=== PATIENT | female | born 1995 | race Caucasian/White ===

== ENCOUNTER → 2017-05-30 | Outpatient (CLI) | payer OTHER ==
--- NOTE | 2017-05-30 11:40 | US ---
EXAMINATION TYPE: US abdomen complete DATE OF EXAM: 05/30/2017 COMPARISON: None CLINICAL HISTORY: 22 year-old female R19.0 Right flank mass. Patient stated feels small palpable at r ight abdomen; Ht 5'2"; Wt approximately 220lbs. TECHNIQUE: Multiple sonographic images of the abdomen are obtained. Additional targeted scanning david g the right flank at the patient directed site of palpable abnormality. FINDINGS: Liver Length: 16.7 cm Gallbladder Wall: 0.2 cm CBD: 3.5 mm Spleen: 9.0 cm Right Kidney: 10.8 x 5.4 x 3.6 cm Left Kidney: 10.4 x 5.3 x 5.7 cm Pancreas: Suboptimal visualization of the pancreatic head and tail secondary to shadowing from bowel gas. Liver: Slightly heterogeneous echotexture may be on a technical basis. Gallbladder: wnl Evidence for sonographic Arango's sign: No CBD: wnl Spleen: wnl Right Kidney: wnl Left Kidney: wnl Upper IVC: wnl Abd Aorta: wnl No mass is identified in the superficial tissues at patient's complaint of palpable at right abdomen. IMPRESSION: 1. Slight heterogeneous appearance to the liver probably on a technical basis rather than secondary t o nonspecific hepatocellular disease. 2. Targeted scanning along the right flank shows no sonographic abnormality of the superficial tissue s.
== END | disposition home or self-care (01) ==
LOC: RADUSWWP 08:36
PROVIDERS: ATTEND Family Medicine
DX: R19.09 Other intra-abdominal and pelvic swelling, mass and lump (principal)
CPT/HCPCS: 76700

== ENCOUNTER 2018-05-08 15:54 | Outpatient (CLI) | payer OTHER ==
[2018-05-08 16:32] LABS: Appearance,Urine Cloudy (Clear); Bilirubin,Urine Negative (Negative); Blood,Urine Negative (Negative); Color,Urine Yellow; Glucose,Urine (UA) Negative (Negative); Ketones,Urine Negative (Negative); Leukocyte Esterase,Urine Moderate (Negative); Mucus,Urine Rare /hpf; Nitrite,Urine Negative (Negative); Protein,Urine Negative (Negative); RBC,Urine 1 /hpf (0-5); Specific Gravity,Urine 1.013 (1.001-1.035); Squamous Epithelial Cell,Urine 5 /hpf (0-4); Urobilinogen,Urine <2.0 mg/dL (<2.0); WBC,Urine 4 /hpf (0-5)
[2018-05-08 17:26] LABS: ALT 27 U/L (9-52); AST 15 U/L (14-36); Blood Urea Nitrogen 8 mg/dL (7-17); LDH 401 U/L (313-618); Uric Acid 3.7 mg/dL (3.7-7.4)
[2018-05-08 17:31] LABS: Basophils % (A) 0 %; Eosinophils # (A) 0.1 k/uL (0-0.7); Eosinophils % (A) 1 %; HCT 33.8 % (34.0-46.0); HGB 11.2 gm/dL (11.4-16.0); Lymphocytes # (A) 1.9 k/uL (1.0-4.8); Lymphocytes % (A) 13 %; MCH 30.3 pg (25.0-35.0); MCHC 33.2 g/dL (31.0-37.0); MCV 91.4 fL (80.0-100.0); Mean Platelet Volume 7.1; Monocytes # (A) 0.7 k/uL (0-1.0); Monocytes % (A) 5 %; Neutrophils # (A) 11.9 k/uL (1.3-7.7); Neutrophils % (A) 80 %; Platelet Count 357 k/uL (150-450); RDW 13.2 % (11.5-15.5); WBC 14.9 k/uL (3.8-10.6)
[2018-05-08 17:58] VITALS: BP 134/67; PULSE 100; RESP 16; TEMP 97.9
--- NOTE | 2018-05-23 08:47 | P.MSEPDOC ---
Presenting Problems - Arrival Data Date of Arrival on Unit: 05/08/18 Time of Arrival on Unit: 15:54 Mode of Transport: Ambulatory Vital Signs - Temperature Temperature: 97.9 F Temperature Source: Temporal Artery Scan - Pulse Right Brachial Pulse Rate: 100 Pulse Assessment Method: Automatic Cuff - Respirations Respiratory Rate: 16 Oxygen Delivery Method: Room Air - Blood Pressure Right Arm Blood Pressure: 134/67 Blood Pressure Mean: 89 Blood Pressure Source: Automatic Cuff Medical Screen Scoring (Post) - Cervical Exam Dilation: Exam Deferred Effacement: Exam Deferred Membranes: Intact - Uterine Contractions Frequency: N/A Duration: N/A Intensity: N/A - Maternal Vital Signs Maternal Temperature: N/A Maternal Blood Pressure: N/A Signs of Preeclampsia: N/A Maternal Respirations: N/A - Pain Assessment Pain Scale Used: Numeric (1 - 10) Pain Intensity: 0 - Maternal Trauma Maternal Trauma: N/A - Assessment Heart Rate: 145 Heart Rate - NICHD Category: Category I (Normal) = 0 NST: Reactive Position: N/A Station: N/A - Total Score Total Score (Post): 0 - Post Treatment Level of Risk Post Treatment Level of Risk: Low (0-5) Physician Notification (Post) - Physician Notified Physician Notified Date: 05/08/18 Physician Notified Time: 17:10 Physician/Practitioner Notified:: gasper Spoke With: gasper New Order Received: Yes - Notification Comment Comment: reviewed labs, bps, fht, no contractions. pt may be discharged home Disposition - Disposition OB Disposition: Discharge to home Discharge Date: 05/08/18 Discharge Time: 17:40 I agree with the RN Medical Screening Exam: Yes Risk & Benefit of care provided described in d/c instruction: Yes Diagnosis: GESTATIONAL HTN W/O SIGNIFICANT PROTEINURIA, THIRD TRIMESTER
== END 2018-05-08 17:40 | disposition home or self-care (01) ==
LOC: FBPOP 15:54
PROVIDERS: ATTEND Obstetrics & Gynecology
DX: O13.3 Gestational [pregnancy-induced] hypertension without significant proteinuria, third trimester (principal); Z3A.00 Weeks of gestation of pregnancy not specified
CPT/HCPCS: 59025; 82565; 83615; 84450; 84460; 84520; 84550; 85025; 81001; G0463; 99215

== ENCOUNTER → 2018-06-23 | Outpatient (CLI) | payer OTHER ==
[2018-06-23 09:54] VITALS: BP 135/73; PULSE 99; RESP 18; TEMP 98.2
--- NOTE | 2018-06-25 08:58 | P.MSEPDOC ---
Presenting Problems - Arrival Data Date of Arrival on Unit: 06/23/18 Time of Arrival on Unit: 09:00 Mode of Transport: Ambulatory - Complaint OB-Reason for Admission/Chief Complaint: Possible Onset of Labor Comment: Reports cramping x2 days Medical History - Information : 1 Para: 0 Term: 0 : 0 Abortions: Spontaneous or Elective: 0 Number of Living Children: 0 - Gestational Age Gestational Age by VISH (wks/days): 35 Weeks and 6 Days - History Complications: Smoker Review of Systems - Review of Systems Constitutional: No problems Breast: No problems ENT: No problems Cardiovascular: No problems Respiratory: No problems Gastrointestinal: No problems Genitourinary: No problems Musculoskeletal: No problems Neurological: No problems Skin: No problems Vital Signs - Temperature Temperature: 98.2 F Temperature Source: Oral - Pulse Right Brachial Pulse Rate: 99 Pulse Assessment Method: Automatic Cuff - Respirations Respiratory Rate: 18 Oxygen Delivery Method: Room Air O2 Sat by Pulse Oximetry: 96 - Blood Pressure Right Arm Blood Pressure: 135/73 Blood Pressure Mean: 93 Blood Pressure Source: Automatic Cuff Medical Screen Scoring (Pre) - Cervical Exam Dilation: 1-3 cm = 1 Effacement: More than 50% = 2 Membranes: Intact - Uterine Contractions Frequency: < 36 weeks = 6 Duration: N/A Intensity: N/A - Maternal Vital Signs Maternal Temperature: N/A Maternal Blood Pressure: N/A Signs of Preeclampsia: N/A - Pain Assessment Pain Scale Used: Numeric (1 - 10) Pain Intensity: 6 Pain Management Goal: 0 Pain Description: Cramping Pain Frequency: Intermittent Pain Duration: 2 Pain Duration Units: Days Pain Behavior: Vocalization Pain Aggravating Factors: Position - Maternal Trauma Maternal Trauma: N/A - Assessment Baseline FHR: 140 Heart Rate - NICHD Category: Category I (Normal) = 0 NST: Reactive Position: N/A Station: N/A - Total Score Total Score (Pre): 9 - Level of Risk Level of Risk: Medium (6-9) Physician Notification (Pre) - Physician Notified Physician Notified Date: 06/23/18 Physician Notified Time: 09:25 Physician/Practitioner Notifed:: Dr. Ballard Spoke With: Elio New Order Received: Yes - Notification Comment Comment: Order received to complete SVE. I agree with the RN Medical Screening Exam: Yes Risk & Benefit of care provided described in d/c instruction: Yes Diagnosis: FALSE LABOR BEFORE 37 COMPLETED WEEKS OF GEST, THIRD TRI
== END | disposition home or self-care (01) ==
LOC: FBPOP 08:51
PROVIDERS: ATTEND Obstetrics & Gynecology
DX: Z53.9 Procedure and treatment not carried out, unspecified reason (principal)

== ENCOUNTER 2018-07-21 01:20 | Inpatient (IN) | payer OTHER ==
[2018-07-21] MEDS ORDERED: CARBOPROST TROMETHAMINE 250 MCG/ML 1 ML AMP IM PRN (01:44)
[2018-07-21] MEDS ORDERED: LIDOCAINE 0.5% (PF) 5 MG/ML (50 ML SDV) SQ PRN (01:44)
[2018-07-21] MEDS ORDERED: METHYLERGONOVINE 0.2 MG/ML 1 ML AMP IM PRN (01:44)
[2018-07-21] MEDS ORDERED: OXYTOCIN 10 UNIT/ML 1 ML VIAL IM PRN (01:44)
[2018-07-21] MEDS ORDERED: TERBUTALINE 1 MG/ML VIAL SQ PRN (01:44)
[2018-07-21] MEDS ORDERED: OXYTOCIN 20 UNITS/1000 ML NS 1,000 ML IV SCH ×2 (01:45→17:45)
[2018-07-21] MEDS ORDERED: BUTORPHANOL 1 MG/ML 1 ML VIAL IV PRN (01:51)
[2018-07-21] MEDS: LACTATED RINGERS 1,000 ML IV SCH ×4 (02:25→22:00)
[2018-07-21 02:36] VITALS: BMI 46.3
[2018-07-21 02:43] LABS: Basophils % (A) 0 %; Eosinophils # (A) 0.2 k/uL (0-0.7); Eosinophils % (A) 1 %; HCT 34.4 % (34.0-46.0); HGB 11.8 gm/dL (11.4-16.0); Lymphocytes # (A) 2.8 k/uL (1.0-4.8); Lymphocytes % (A) 18 %; MCH 30.5 pg (25.0-35.0); MCHC 34.2 g/dL (31.0-37.0); Mean Platelet Volume 7.4; Monocytes # (A) 0.6 k/uL (0-1.0); Monocytes % (A) 4 %; Neutrophils # (A) 11.9 k/uL (1.3-7.7); Neutrophils % (A) 76 %; Platelet Count 320 k/uL (150-450); RBC 3.87 m/uL (3.80-5.40); RDW 13.5 % (11.5-15.5); WBC 15.7 k/uL (3.8-10.6)
[2018-07-21 03:02] LABS: ALT 35 U/L (9-52); AST 16 U/L (14-36); Blood Urea Nitrogen 10 mg/dL (7-17); LDH 489 U/L (313-618); Uric Acid 3.8 mg/dL (3.7-7.4)
[2018-07-21 03:05] LABS: Appearance,Urine Clear (Clear); Bacteria,Urine Rare /hpf; Bilirubin,Urine Negative (Negative); Blood,Urine Moderate (Negative); Color,Urine Light Yellow; Glucose,Urine (UA) Negative (Negative); Ketones,Urine Negative (Negative); Leukocyte Esterase,Urine Moderate (Negative); Mucus,Urine Rare /hpf; Nitrite,Urine Negative (Negative); Protein,Urine Negative (Negative); Specific Gravity,Urine 1.008 (1.001-1.035); Squamous Epithelial Cell,Urine 2 /hpf (0-4); Urobilinogen,Urine <2.0 mg/dL (<2.0); WBC,Urine 15 /hpf (0-5)
[2018-07-21 03:23] LABS: INR 0.9 (<1.2); Partial Thromboplastin Time 22.5 sec (22.0-30.0); Prothrombin Time 9.3 sec (9.0-12.0)
--- NOTE | 2018-07-21 06:04 | P.HPOB ---
History of Present Illness H&P Date: 07/21/18 Chief Complaint: Leaking of fluid This patient is a pleasant 23-year-old 1 para 0 female estimated date of confinement 07/22/2018 estimated gestational age 39-6/7 weeks who presents to labor and delivery with complaints of leaking of fluid at about 12:30 this evening. Patient's care is per Dr. 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 Review of Systems Gastrointestinal: Reports heartburn Genitourinary: Reports Menstruation: Reports amenorrhea Past Medical History Past Medical History: Asthma History of Any Multi-Drug Resistant Organisms: None Reported Past Surgical History: Tonsillectomy Past Anesthesia/Blood Transfusion Reactions: No Reported Reaction Past Psychological History: No Psychological Hx Reported Smoking Status: Current every day smoker Past Alcohol Use History: None Reported Past Drug Use History: None Reported - Past Family History Father Family Medical History: Cancer, Diabetes Mellitus, Hypertension Medications and Allergies Home Medications Medication Instructions Recorded Confirmed Type Pnv,Calcium 72/Iron/Folic Acid 1 tab PO DAILY 05/08/18 07/21/18 History [ Plus Tablet] Allergies Allergy/AdvReac Type Severity Reaction Status Date / Time ceftriaxone [From Rocephin] Allergy Vomiting Verified 07/21/18 01:22 clarithromycin [From Biaxin] Allergy Rash/Hives Verified 07/21/18 01:22 Exam Vital Signs Temp Pulse Resp BP Pulse Ox 07/21/18 01:51 98.7 F 112 H 16 159/74 98 07/21/18 01:42 98.7 F 112 H 16 159/74 98 Intake and Output 07/20/18 07/20/18 07/21/18 14:59 22:59 06:59 Other: Weight 114.759 kg - OBG Physical Exam Abdomen: bowel sounds normal, no diffuse tenderness, no bruit present, no guarding noted, no hepatomegaly, no splenomegaly, no mass Vulva: both: normal Vagina: normal moisture, no discharge Cervix: no lesion (Cervix is 2-3 and thick -3 station), no discharge Uterus: enlarged Results blood work shows she is a positive, rubella immune, RPR is nonreactive , hepatitis B is negative, HIV is nonreactive, Glucola was normal, anatomy ultrasounds normal. Group B strep is negative. Result Diagrams: 07/21/18 02:25 07/21/18 02:25 Abnormal Lab Results - Last 24 Hours (Table) 07/21/18 07/21/18 07/21/18 Range/Units 02:20 02:25 02:25 WBC 15.7 H (3.8-10.6) k/uL Neutrophils # 11.9 H (1.3-7.7) k/uL Fibrinogen (200-500) mg/dL Creatinine 0.49 L (0.52-1.04) mg/dL Urine Blood Moderate H (Negative) Ur Leukocyte Esterase Moderate H (Negative) Urine WBC 15 H (0-5) /hpf Urine Bacteria Rare H (None) /hpf Urine Mucus Rare H (None) /hpf 07/21/18 Range/Units 02:47 WBC (3.8-10.6) k/uL Neutrophils # (1.3-7.7) k/uL Fibrinogen 589 H (200-500) mg/dL Creatinine (0.52-1.04) mg/dL Urine Blood (Negative) Ur Leukocyte Esterase (Negative) Urine WBC (0-5) /hpf Urine Bacteria (None) /hpf Urine Mucus (None) /hpf Assessment and Plan (1) 39 weeks gestation of Narrative/Plan: This is a pleasant 23-year-old 1 para 0 female 39-6/7 weeks gestation with premature rupture membranes and rare contractions. Plan is Pitocin induction/augmentation of labor and anticipate vaginal delivery. Current Visit: Yes Status: Acute Code(s): Z3A.39 - 39 WEEKS GESTATION OF SNOMED Code(s): 68349689 (2) Premature rupture of membranes Current Visit: Yes Status: Acute Code(s): O42.90 - ANASTASIA ROM, 7TH0 BETW RUPT & ONST LABR, UNSP WEEKS OF GEST SNOMED Code(s): 76012629
[2018-07-21] MEDS ORDERED: SODIUM CHLORIDE 0.9% 100 ML BAG ONE (11:20)
[2018-07-21] MEDS ORDERED: fentaNYL (PF) 50 MCG/ML 5 ML AMP ONE (11:20)
[2018-07-21] MEDS ORDERED: ROPIVACAINE 5MG/ML 20ML VIAL ONE (11:20)
[2018-07-21] MEDS ORDERED: AMPICILLIN 2,000 MG in SODIUM CHLORIDE 0.9% 100 ML IVPB STA (16:29)
[2018-07-21] MEDS ORDERED: OXYTOCIN 10 UNIT/ML 1 ML VIAL ONE (17:08)
[2018-07-21] MEDS ORDERED: KETAMINE 10 MG/ML 20 ML VIAL ONE (17:08)
[2018-07-21] MEDS ORDERED: ONDANSETRON 4 MG/2 ML VIAL ONE (17:08)
[2018-07-21] MEDS ORDERED: MORPHINE SULFATE (PF) 0.3 MG/0.3 ML SYR ONE (17:08)
[2018-07-21] MEDS ORDERED: METOCLOPRAMIDE 5 MG/ML 2 ML VIAL IVP PRN (17:45)
[2018-07-21] MEDS ORDERED: diphenhydrAMINE 50 MG CAP PO PRN (17:45)
[2018-07-21] MEDS ORDERED: diphenhydrAMINE 50 MG/ML 1 ML VIAL IVP PRN ×2 (17:45)
[2018-07-21] MEDS ORDERED: ONDANSETRON 4 MG/2 ML VIAL IVP PRN (17:45)
[2018-07-21] MEDS ORDERED: diphenhydrAMINE 25 MG CAP PO PRN (17:45)
[2018-07-21] MEDS ORDERED: NALOXONE 0.4 MG/ML 1 ML VIAL IV PRN (17:45)
[2018-07-21] MEDS ORDERED: ACETAMINOPHEN TAB 325 MG TAB PO PRN (17:45)
[2018-07-21] MEDS ORDERED: ZOLPIDEM 5 MG TAB PO PRN (17:45)
--- NOTE | 2018-07-21 17:54 | P.OP ---
Date of Procedure: 07/21/18 Preoperative Diagnosis: 1. at 39 weeks and 6 days 2. Prolonged rupture membranes 3. Nonreassuring heart tones Postoperative Diagnosis: Same Procedure(s) Performed: Primary low transverse Anesthesia: epidural Surgeon: Sharon Chisholm Technology Program Manager #1: Joann Gerardo Estimated Blood Loss (ml): 600 IV fluids (ml): 800 Urine output (ml): 100 Pathology: other (Placenta) Condition: stable Disposition: floor Indications for Procedure: 23-year-old presented at 39 weeks and 6 days with spontaneous rupture of membranes at 12:30 AM. Clear fluid was noted. heart tones were 120-125 with moderate variability and reactive. Pitocin augmentation was started. When she was uncomfortable she did get an epidural. She was making slow progress throughout the day and when she was 4-[address] Ballard at around 4:30 PM, Dr. Ballard signed out and I took over her care. I did start IV antibiotics for the prolonged rupture. While antibiotics were going in, the heart tones dropped to 60 bpm. They did come up to the low 100s but after a few minutes of this, and after intrauterine resuscitation was not working, informed consent was obtained and section was called. Operative Findings: Viable female Apgars 9, 9, weight 7 lbs. 4 oz. Normal uterus, tubes, ovaries. Description of Procedure: Patient was taken to the operating room where epidural anesthesia was found be adequate. She was prepped and draped in normal sterile fashion in dorsal supine position with a leftward tilt. Pfannenstiel skin incision was made the scalpel and carried through to the underlying layer of fascia with the scalpel. Fascia was incised in midline and carried bilaterally with the Clayton scissors. The superior aspect of the fascial incision was grasped with Tejinder clamps elevated and the underlying rectus muscles dissected off with the Clayton's. Attention was then turned to inferior aspect of same incision which in a similar fashion was grasped tented up and the underlying rectus muscles dissected off with the Clayton's. The rectus muscles were the midline and the peritoneum was identified tented up and entered sharply with the scalpel. The incision was extended superiorly and inferiorly with good visualization of the bladder. The bladder blade was inserted. A low transverse incision was then made on the uterus with the scalpel. This was carried bilaterally and digital manner. 's head delivered atraumatically , nose and mouth bulb suctioned, cord clamped and cut, handed off to waiting nurses. Apgars 9,9 weight 7 lbs. 4 oz. Placenta delivered manually, intact with three-vessel cord. The uterus is exteriorized and cleared of all clots and debris. The uterine incision was closed with 0 Vicryl in a running locked fashion. Second layer of the same sutures used in imbricating fashion to obtain excellent hemostasis. Both ovaries and tubes appeared normal. The uterus was placed back into the abdomen. The muscles were reapproximated using 2-0 Vicryl in interrupted fashion. The fascia was reapproximated using 0 Vicryl in a running fashion. The subcutaneous tissues closed with 3-0 Vicryl running fashion. The skin was closed cortez. Patient tolerated the procedure well, sponge and instrument counts were correct times 2 and she was taken to the recovery room in stable condition.
[2018-07-21] MEDS ORDERED: CITRIC ACID-SODIUM CITRATE 15 ML CUP PO ONE (18:20)
--- NOTE | 2018-07-21 18:42 | P.MSEPDOC ---
Presenting Problems - Arrival Data Date of Arrival on Unit: 07/21/18 Time of Arrival on Unit: 01:42 Mode of Transport: Wheelchair - Complaint OB-Reason for Admission/Chief Complaint: Rule Out SROM Medical History - Information : 1 Para: 0 Term: 0 : 0 Abortions: Spontaneous or Elective: 0 Number of Living Children: 0 - Gestational Age Gestational Age by VISH (wks/days): 39 Weeks and 6 Days - History Complications: Smoker Review of Systems - Review of Systems Constitutional: No problems Breast: No problems ENT: No problems Cardiovascular: No problems Respiratory: No problems Gastrointestinal: No problems Genitourinary: No problems Musculoskeletal: No problems Neurological: No problems Skin: No problems Vital Signs - Temperature Temperature: 98.4 F Temperature Source: Temporal Artery Scan - Pulse Right Brachial Pulse Rate: 93 Pulse Assessment Method: Automatic Cuff - Respirations Respiratory Rate: 16 Oxygen Delivery Method: Room Air O2 Sat by Pulse Oximetry: 100 - Blood Pressure Right Arm Blood Pressure: 149/68 Blood Pressure Mean: 95 Blood Pressure Source: Automatic Cuff Medical Screen Scoring (Pre) - Cervical Exam Dilation: 1-3 cm = 1 Membranes: Intact - Uterine Contractions Frequency: > 5 minutes apart = 1 Duration: N/A Intensity: N/A - Maternal Vital Signs Maternal Temperature: N/A Maternal Blood Pressure: Systolic >139 = 2 Signs of Preeclampsia: N/A Maternal Respirations: N/A - Pain Assessment Pain Scale Used: Numeric (1 - 10) Pain Intensity: 0 - Maternal Trauma Maternal Trauma: N/A - Assessment Baseline FHR: 130 Heart Rate - NICHD Category: Category I (Normal) = 0 NST: Reactive Position: N/A Station: N/A - Total Score Total Score (Pre): 4 - Level of Risk Level of Risk: Low (0-5) Physician Notification (Pre) - Physician Notified Physician Notified Date: 07/21/18 Physician Notified Time: 01:42 Physician/Practitioner Notifed:: Dr. Chaparro Spoke With: Dr. Chaparro New Order Received: Yes - Notification Comment Comment: Dr. Chaparro called and given report on pt in tr. positive amnisure. vag exam of 2.5/60/-1. Bps of 159/74 and 168/85. Orders recieved to admit pt. To draw pih labs. to recheck after 1 hr, if no change start pitocin. Disposition - Disposition OB Disposition: Admit, LDRP Suite I agree with the RN Medical Screening Exam: Yes Risk & Benefit of care provided described in d/c instruction: Yes Diagnosis: ENCOUNTER FOR FULL-TERM UNCOMPLICATED DELIVERY
[2018-07-21] MEDS ORDERED: HYDROmorphone 1 MG/ML 1 ML SYRINGE IM STA (19:50)
[2018-07-21] MEDS ORDERED: AMPICILLIN 1,000 MG in SODIUM CHLORIDE 0.9% 50 ML IVPB SCH (20:00)
[2018-07-22] MEDS: SENNOSIDES-DOCUSATE SODIUM 1 EACH TAB PO SCH ×3 (00:22→20:14)
[2018-07-22] MEDS: KETOROLAC 30 MG/ML 1 ML VIAL IVP PRN ×2 (03:15→09:27)
--- NOTE | 2018-07-22 08:57 | P.PNOBGPC ---
Subjective - Subjective Principal diagnosis: Status post primary section postoperative day #1 Interval history: Patient is doing okay. She has not ambulated yet. She is not passing flatus yet. Her catheter was removed but she has not urinated yet. She is attempting to breast-feed. Lochia is minimal. Patient reports: Reports pain well controlled [place]: doing well, nursing well Objective - Vital Signs Latest vital signs: Vital Signs Temp Pulse Resp BP Pulse Ox 07/22/18 04:00 98.7 F 92 16 127/69 07/21/18 23:50 98.6 F 89 16 123/52 07/21/18 20:00 98.5 F 79 16 132/62 07/21/18 19:58 98.5 F 88 16 128/62 07/21/18 19:28 97.9 F 71 16 140/64 07/21/18 18:47 89 16 170/69 100 07/21/18 18:42 98.4 F 93 16 149/68 100 07/21/18 18:30 94 16 159/72 100 07/21/18 18:15 89 16 146/76 100 07/21/18 18:00 93 16 149/68 100 07/21/18 17:45 98.4 F 103 H 20 136/62 100 Intake and Output 07/21/18 07/22/18 07/22/18 22:59 06:59 14:59 Intake Total 250 1600 Output Total 2600 600 Balance -2350 1000 Intake: IV 0 Lactated Ringers 1,000 ml 0 @ 125 mls/hr IV .Q8H PEGGY Rx#:[id number] Intake, IV Titration 1000 Amount Lactated Ringers 1,000 ml 1000 @ 125 mls/hr IV .Q8H PEGGY Rx#:[id number] Oral 250 600 Output: Urine 2000 600 Uretheral (Gatica) 600 Estimated Blood Loss 600 Other: # Voids 2 - Exam Extremities: Present: normal. Absent: tenderness Abdomen: Present: soft (Faint bowel sounds 4) Incision: Present: normal, dry, intact. Absent: erythematous Uterus: Present: normal, firm. Absent: tenderness Assessment and Plan Assessment: Impression is status post primary section postoperative day #1 Plan: Encouraged ambulation. Will advance diet as tolerated after flatus.
[2018-07-22 09:11] LABS: Basophils % (A) 0 %; Eosinophils % (A) 0 %; Lymphocytes # (A) 1.4 k/uL (1.0-4.8); Lymphocytes % (A) 9 %; MCH 30.5 pg (25.0-35.0); MCHC 33.5 g/dL (31.0-37.0); MCV 91.2 fL (80.0-100.0); Mean Platelet Volume 7.2; Monocytes # (A) 0.5 k/uL (0-1.0); Monocytes % (A) 3 %; Neutrophils # (A) 13.8 k/uL (1.3-7.7); Neutrophils % (A) 87 %; Platelet Count 295 k/uL (150-450); RBC 2.97 m/uL (3.80-5.40); RDW 13.5 % (11.5-15.5)
[2018-07-22 09:16] LABS: HGB 9.1 gm/dL (11.4-16.0)
[2018-07-22] MEDS: SIMETHICONE 80 MG CHEWABLE PO PRN (20:14)
[2018-07-22] MEDS: HYDROcodone/APAP 7.5-325MG 1 EACH TAB PO PRN (20:14)
[2018-07-22] MEDS: LACTATED RINGERS 1,000 ML IV SCH (21:34)
[2018-07-22] MEDS: IBUPROFEN 600 MG TAB PO PRN (23:21)
[2018-07-23 07:59] VITALS: BP 116/69; PULSE 74; RESP 16; TEMP 97.8
[2018-07-23] MEDS: HYDROcodone/APAP 7.5-325MG 1 EACH TAB PO PRN (08:10)
[2018-07-23] MEDS: SENNOSIDES-DOCUSATE SODIUM 1 EACH TAB PO SCH (08:11)
--- NOTE | 2018-07-23 08:33 | P.DS ---
Providers Date of admission: 07/21/18 01:39 Expected date of discharge: 07/23/18 Attending physician: Giuliana Ballard Primary care physician: Stated None Hospital Course: This is a 23-year-old female 1 para 0 at 39-6/7 weeks who presented with spontaneous rupture membranes. She underwent oxytocin augmentation of labor. She then underwent a primary low transverse section under epidural anesthesia due to nonreassuring heart tones. She delivered on a viable female infant with scores of 9 at 1 minute and 9 at 5 minutes and weight of 7 lbs. 4 oz. Her postoperative course has been uncomplicated. She is passing flatus but no bowel movement yet. Her pain is been fairly well-controlled with ibuprofen and Reading. She is bottle feeding at this time but would like to try to pump her breast milk. Lochia is decreasing. Vital signs are stable. Abdomen is soft with positive bowel sounds 4. Incision is clean dry and intact. Extremities show negative Homans. Impression is status post primary low transverse section postoperative day #2. Plan is to discharge home today. Routine postoperative and instructions are given. Gracia will be removed and Steri-Strips placed prior to discharge. She will be given a prescription for Reading and ibuprofen. She has signed the start talking form and brochure was given. She has received counseling on narcotics. She will also received a breast pump prescription. She is advised follow-up in the office in approximately 1 week for a postoperative check and in 6 weeks for check. She is advised to call the office if she has any further questions or concerns prior to her appointment times. Procedures: Oxytocin augmentation of labor Primary low transverse section on 07/21/2018 Patient Condition at Discharge: Stable Plan - Discharge Summary New Discharge Prescriptions: New HYDROcodone/APAP 7.5-325MG [Reading 7.5-325] 1 each PO Q6H PRN #28 tab PRN Reason: Severe Pain Ibuprofen [Motrin] 600 mg PO Q6HR PRN #60 tab PRN Reason: Mild Pain Or Fever >= 100.5 Continue Pnv,Calcium 72/Iron/Folic Acid [ Plus Tablet] 1 tab PO DAILY Discharge Medication List Pnv,Calcium 72/Iron/Folic Acid [ Plus Tablet] 1 tab PO DAILY 05/08/18 [ History] HYDROcodone/APAP 7.5-325MG [Reading 7.5-325] 1 each PO Q6H PRN #28 tab 07/23/18 [ Rx] Ibuprofen [Motrin] 600 mg PO Q6HR PRN #60 tab 07/23/18 [Rx] Follow up Appointment(s)/Referral(s): Giuliana Ballard DO [Doctor of Osteopathic Medicine] - 1 Week Activity/Diet/Wound Care/Special Instructions: Instructions 1. Do not begin any exercise program for 3 weeks. 2. Do not resume sexual relations for 3 weeks or longer if uncomfortable. 3. You may take tub baths or showers at any time. 4. You may use tampons if desired after 3 weeks. 5. Keep the area of episiotomy (stitches) clean and dry. 6. If you are not nursing, wear a good fitting, supportive bra during the day and limit fluid intake for at least 1 week to prevent breast engorgement. 7. Call the office, [phone], within the next week to make appointment for your 6 week checkup if it has not already been made. 8. Report any of the following occurrences to the doctor promptly: a. Heavy, excessive bleeding b. Chills, fever c. Burning or frequency of urination d. Pain or redness and breasts if nursing e. Increasing pain or swelling in episiotomy (stitches). In addition to the above instructions, the following additional should be followed: 1. No heavy lifting or straining (exercising) until after 6 week checkup. 2. Keep abdominal incision clean and dry: You may wear a dressing if more comfortable. 3. Make office appointment for 10 days after going home or as instructed by her doctor. Discharge Disposition: HOME SELF-CARE
[2018-07-23] MEDS: IBUPROFEN 600 MG TAB PO PRN (14:47)
[2018-07-23] MEDS: SIMETHICONE 80 MG CHEWABLE PO PRN (16:00)
== END 2018-07-23 16:19 | disposition home or self-care (01) | DRG 788 ==
LOC: FBPOP 01:20 → 4FBP 01:39
PROVIDERS: ADMIT Obstetrics & Gynecology; ATTEND Obstetrics & Gynecology
PROC: 3E0R3NZ Introduction of Analgesics, Hypnotics, Sedatives into Spinal Canal, Percutaneous Approach (ICD-10-PCS; principal; 2018-07-21 17:05)
PROC: 00HU33Z Insertion of Infusion Device into Spinal Canal, Percutaneous Approach (ICD-10-PCS; principal; 2018-07-21 17:05)
PROC: 10D00Z1 Extraction of Products of Conception, Low, Open Approach (ICD-10-PCS; principal; 2018-07-21 17:05)
DX: O76 Abnormality in fetal heart rate and rhythm complicating labor and delivery (principal); F17.200 Nicotine dependence, unspecified, uncomplicated; O99.334 Smoking (tobacco) complicating childbirth; Z37.0 Single live birth; Z3A.39 39 weeks gestation of pregnancy; Z82.49 Family history of ischemic heart disease and other diseases of the circulatory system; Z83.3 Family history of diabetes mellitus; Z88.1 Allergy status to other antibiotic agents
CPT/HCPCS: 59025; 81001; 82565; 83615; 84112; 84450; 84460; 84520; 84550; 85025; 85384; 85610; 85730; 86850; 86900; 86901; 88307; 99213

== ENCOUNTER → 2018-09-16 | Outpatient (CLI) | payer OTHER | END | disposition home or self-care (01) | LOC: LABWHC1 14:57 | PROVIDERS: ATTEND Obstetrics & Gynecology | DX: N91.2 Amenorrhea, unspecified (principal) | CPT/HCPCS: 36415; 84702 ==

== ENCOUNTER → 2018-10-06 | Outpatient (CLI) | payer OTHER | END | disposition home or self-care (01) | LOC: LABWHC1 16:24 | PROVIDERS: ATTEND Obstetrics & Gynecology | DX: N91.2 Amenorrhea, unspecified (principal) | CPT/HCPCS: 36415; 84702 ==

== ENCOUNTER 2019-02-02 20:44 | Emergency (ER) | payer OTHER ==
[2019-02-02 20:55] VITALS: BP 162/96; PULSE 84; RESP 18; TEMP 98.8
--- NOTE | 2019-02-02 23:20 | CT ---
EXAM: CT Head Without Intravenous Contrast CLINICAL HISTORY: ITS.REASON CT Reason: Pain TECHNIQUE: Axial computed tomography images of the head/brain without intravenous contrast. CTDI is 45.3 mGy and DLP is 972.0 mGy-cm. This CT exam was performed using one or more of the following dose reduction techniques: automated exposure control, adjustment of the mA and/or kV according to patient size, and/or use of iterative reconstruction technique. COMPARISON: No relevant prior studies available. FINDINGS: Brain: No evidence of acute transcortical cerebral infarction or intracranial hemorrhage. No abnormal mass effect or midline shift. No abnormal extra-axial collections. Ventricles: Ventricles are unremarkable. Bones/joints: No skull fracture identified. Sinuses: Imaged paranasal sinuses are clear. Mastoid air cells: Mastoid sinuses are clear. IMPRESSION: No evidence of acute intracranial abnormality. EXAM: CT Cervical Spine Without Intravenous Contrast CLINICAL HISTORY: ITS.REASON CT Reason: Pain TECHNIQUE: Axial computed tomography images of the cervical spine without intravenous contrast. CTDI is 17.8 mGy and DLP is 489.6 mGy-cm. This CT exam was performed using one or more of the following dose reduction techniques: automated exposure control, adjustment of the mA and/or kV according to patient size, and/or use of iterative reconstruction technique. COMPARISON: No relevant prior studies available. FINDINGS: Vertebrae: Cervical vertebral height and alignment are within normal limits except for straightening of normal cervical lordosis. No evidence of acute cervical fracture or subluxation. Discs/spinal canal/neural foramina: No significant osseous cervical spinal stenosis. Soft tissues: No abnormal prevertebral soft tissue thickening. IMPRESSION: No evidence of acute cervical fracture or subluxation.
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
== END 2019-02-02 23:55 | disposition home or self-care (01) ==
LOC: EC 20:44
DX: S06.0X0A Concussion without loss of consciousness, initial encounter (principal); F17.200 Nicotine dependence, unspecified, uncomplicated; Z79.899 Other long term (current) drug therapy; Z88.1 Allergy status to other antibiotic agents; V47.5XXA Car driver injured in collision with fixed or stationary object in traffic accident, initial encounter; Y92.410 Unspecified street and highway as the place of occurrence of the external cause
CPT/HCPCS: 70450; 72125; 99284

== ENCOUNTER 2021-08-18 13:07 | Emergency (ER) | payer OTHER ==
[2021-08-18 15:19] VITALS: RESP 16
[2021-08-18 16:17] LABS: ALT 23 U/L (4-34); AST 20 U/L (14-36); African American GFR (CKD) >90 (>60 ml/min/1.73 sqM); Albumin 4.6 g/dL (3.5-5.0); Alkaline Phosphatase 64 U/L (38-126); Amylase 69 U/L (30-110); Anion Gap 11 mmol/L; Blood Urea Nitrogen 10 mg/dL (7-17); Calcium 9.5 mg/dL (8.4-10.2); Carbon Dioxide 24 mmol/L (22-30); Chloride 103 mmol/L (98-107); Glucose 101 mg/dL (74-99); Lipase 62 U/L (23-300); Non-African American GFR(CKD) >90 (>60 ml/min/1.73 sqM); Potassium 4.1 mmol/L (3.5-5.1); Sodium 138 mmol/L (137-145); Total Bilirubin 0.6 mg/dL (0.2-1.3); Total Protein 7.6 g/dL (6.3-8.2)
[2021-08-18 16:20] LABS: Appearance,Urine Clear (Clear); Bilirubin,Urine Negative (Negative); Blood,Urine Negative (Negative); Color,Urine Yellow; Glucose,Urine (UA) Negative (Negative); Ketones,Urine Negative (Negative); Leukocyte Esterase,Urine Negative (Negative); Nitrite,Urine Negative (Negative); Protein,Urine Trace (Negative); Specific Gravity,Urine 1.029 (1.001-1.035); Urobilinogen,Urine <2.0 mg/dL (<2.0)
[2021-08-18 16:24] LABS: Basophils # (A) 0.1 k/uL (0-0.2); Basophils % (A) 1 %; Eosinophils # (A) 0.2 k/uL (0-0.7); Eosinophils % (A) 1 %; HCT 45.1 % (34.0-46.0); Lymphocytes # (A) 2.5 k/uL (1.0-4.8); Lymphocytes % (A) 17 %; MCH 30.8 pg (25.0-35.0); MCHC 33.2 g/dL (31.0-37.0); MCV 92.7 fL (80.0-100.0); Mean Platelet Volume 7.6; Monocytes # (A) 0.7 k/uL (0-1.0); Monocytes % (A) 5 %; Neutrophils # (A) 11.4 k/uL (1.3-7.7); Neutrophils % (A) 76 %; Platelet Count 393 k/uL (150-450); RBC 4.87 m/uL (3.80-5.40); RDW 13.1 % (11.5-15.5)
[2021-08-18] MEDS ORDERED: HYDROmorphone 1 MG/ML 1 ML SYRINGE IM STA (18:25)
[2021-08-18] MEDS ORDERED: ONDANSETRON ODT 4 MG TAB PO STA (18:25)
--- NOTE | 2021-08-18 18:34 | ED ---
General Adult HPI - General Chief complaint: Abdominal Pain Stated complaint: Abd Pain Time Seen by Provider: 08/18/21 18:06 Source: patient, RN notes reviewed Mode of arrival: ambulatory Limitations: no limitations - History of Present Illness Initial comments: 26-year-old female presents to the emergency room for a chief complaint of abdominal pain. Patient reports she has upper abdominal pain. States she's had this for about 2 days. States it worsens after eating. Patient states she has vomited in the waiting room. She does not have fevers or chills. She has not any lower abdominal pain. No diarrhea.Patient has no other complaints at this time including shortness of breath, chest pain, headache, or visual changes. - Related Data Previous Rx's Medication Instructions Recorded Dicyclomine [Bentyl] 20 mg PO TID PRN #14 tablet 08/18/21 Ondansetron [Zofran ODT] 4 mg PO Q8HR PRN #15 tab 08/18/21 Allergies Allergy/AdvReac Type Severity Reaction Status Date / Time ceftriaxone [From Rocephin] Allergy Vomiting Verified 08/18/21 20:13 clarithromycin [From Biaxin] Allergy Rash/Hives Verified 08/18/21 20:13 Review of Systems ROS Statement: Those systems with pertinent positive or pertinent negative responses have been documented in the HPI. ROS Other: All systems not noted in ROS Statement are negative. Past Medical History Past Medical History: Asthma History of Any Multi-Drug Resistant Organisms: None Reported Past Surgical History: Section, Tonsillectomy Past Anesthesia/Blood Transfusion Reactions: No Reported Reaction Past Psychological History: No Psychological Hx Reported Smoking Status: Current every day smoker Past Alcohol Use History: Rare Past Drug Use History: Marijuana - Past Family History Father Family Medical History: Cancer, Diabetes Mellitus, Hypertension General Exam Limitations: no limitations General appearance: alert, in no apparent distress Head exam: Present: atraumatic Eye exam: Present: normal appearance, PERRL. Absent: scleral icterus, conjunct ival injection ENT exam: Present: normal exam, mucous membranes moist Neck exam: Present: normal inspection, full ROM. Absent: tenderness Respiratory exam: Present: normal lung sounds bilaterally. Absent: respiratory distress, wheezes Cardiovascular Exam: Present: regular rate, normal rhythm, normal heart sounds GI/Abdominal exam: Present: soft, tenderness (Patient has tenderness to the right upper quadrant. No lower abdominal tenderness. Negative Arango sign.), normal bowel sounds. Absent: distended Neurological exam: Present: alert Course Vital Signs 08/18/21 15:16 Temperature 98 F Pulse Rate 97 Respiratory 16 Rate Blood Pressure 159/81 O2 Sat by Pulse 98 Oximetry Medical Decision Making - Medical Decision Making Vitals are stable. HPI and physical exam as documented. Right upper quadrant pain and tenderness. Minimal epigastric tenderness. No lower abdominal tenderness. CBC does show leukocytosis which is likely reactive to vomiting. CMP unremarkable. Amylase and lipase normal. Urinalysis and hCG neg ative.Ultrasound of the right upper quadrant was performed which was unremarkable aside for a hepatic cyst. Therefore CT was obtained which showed enlarged mesenteric lymph nodes and engorgement of the mesenteric vascular suggesting mesenteric panniculitis or adenitis. Could be secondary to enteri tis. Attention on follow-up imaging in 1-2 months is recommended. Patient's pain was reevaluated. Her abdomen is soft. Patient can be discharged home to follow up with primary care. Will return here for any worsening symptoms. - Lab Data Result diagrams: 08/18/21 15:51 08/18/21 15:51 Lab Results 08/18/21 08/18/21 08/18/21 Range/Units 15:51 15:51 15:51 WBC 15.0 H (3.8-10.6) k/uL RBC 4.87 (3.80-5.40) m/uL Hgb 15.0 (11.4-16.0) gm/dL Hct 45.1 (34.0-46.0) % MCV 92.7 (80.0-100.0) fL MCH 30.8 (25.0-35.0) pg MCHC 33.2 (31.0-37.0) g/dL RDW 13.1 (11.5-15.5) % Plt Count 393 (150-450) k/uL MPV 7.6 Neutrophils % 76 % Lymphocytes % 17 % Monocytes % 5 % Eosinophils % 1 % Basophils % 1 % Neutrophils # 11.4 H (1.3-7.7) k/uL Lymphocytes # 2.5 (1.0-4.8) k/uL Monocytes # 0.7 (0-1.0) k/uL Eosinophils # 0.2 (0-0.7) k/uL Basophils # 0.1 (0-0.2) k/uL Sodium (137-145) mmol/L Potassium (3.5-5.1) mmol/L Chloride (98-107) mmol/L Carbon Dioxide (22-30) mmol/L Anion Gap mmol/L BUN (7-17) mg/dL Creatinine (0.52-1.04) mg/dL Est GFR (CKD-EPI)AfAm (>60 ml/min/1.73 sqM) Est GFR (CKD-EPI)NonAf (>60 ml/min/1.73 sqM) Glucose (74-99) mg/dL Calcium (8.4-10.2) mg/dL Total Bilirubin (0.2-1.3) mg/dL AST (14-36) U/L ALT (4-34) U/L Alkaline Phosphatase (38-126) U/L Total Protein (6.3-8.2) g/dL Albumin (3.5-5.0) g/dL Amylase (30-110) U/L Lipase (23-300) U/L Urine Color Yellow Urine Appearance Clear (Clear) Urine pH 6.0 (5.0-8.0) Ur Specific Arpin 1.029 (1.001-1.035) Urine Protein Trace H (Negative) Urine Glucose (UA) Negative (Negative) Urine Ketones Negative (Negative) Urine Blood Negative (Negative) Urine Nitrite Negative (Negative) Urine Bilirubin Negative (Negative) Urine Urobilinogen <2.0 (<2.0) mg/dL Ur Leukocyte Esterase Negative (Negative) Urine HCG, Qual Not Detected (Not Detectd) 08/18/21 Range/Units 15:51 WBC (3.8-10.6) k/uL RBC (3.80-5.40) m/uL Hgb (11.4-16.0) gm/dL Hct (34.0-46.0) % MCV (80.0-100.0) fL MCH (25.0-35.0) pg MCHC (31.0-37.0) g/dL RDW (11.5-15.5) % Plt Count (150-450) k/uL MPV Neutrophils % % Lymphocytes % % Monocytes % % Eosinophils % % Basophils % % Neutrophils # (1.3-7.7) k/uL Lymphocytes # (1.0-4.8) k/uL Monocytes # (0-1.0) k/uL Eosinophils # (0-0.7) k/uL Basophils # (0-0.2) k/uL Sodium 138 (137-145) mmol/L Potassium 4.1 (3.5-5.1) mmol/L Chloride 103 (98-107) mmol/L Carbon Dioxide 24 (22-30) mmol/L Anion Gap 11 mmol/L BUN 10 (7-17) mg/dL Creatinine 0.49 L (0.52-1.04) mg/dL Est GFR (CKD-EPI)AfAm >90 (>60 ml/min/1.73 sqM) Est GFR (CKD-EPI)NonAf >90 (>60 ml/min/1.73 sqM) Glucose 101 H (74-99) mg/dL Calcium 9.5 (8.4-10.2) mg/dL Total Bilirubin 0.6 (0.2-1.3) mg/dL AST 20 (14-36) U/L ALT 23 (4-34) U/L Alkaline Phosphatase 64 (38-126) U/L Total Protein 7.6 (6.3-8.2) g/dL Albumin 4.6 (3.5-5.0) g/dL Amylase 69 (30-110) U/L Lipase 62 (23-300) U/L Urine Color Urine Appearance (Clear) Urine pH (5.0-8.0) Ur Specific Arpin (1.001-1.035) Urine Protein (Negative) Urine Glucose (UA) (Negative) Urine Ketones (Negative) Urine Blood (Negative) Urine Nitrite (Negative) Urine Bilirubin (Negative) Urine Urobilinogen (<2.0) mg/dL Ur Leukocyte Esterase (Negative) Urine HCG, Qual (Not Detectd) Disposition Clinical Impression: Hepatic cyst, Mesenteric lymphadenopathy Disposition: HOME SELF-CARE Condition: Good Instructions (If sedation given, give patient instructions): Abdominal Pain (ED) Additional Instructions: Take Motrin and Tylenol for pain. Take Bentyl and Zofran as directed. Follow- up with your doctor in one to 2 days. Return to the emergency room for any worsening symptoms. Prescriptions: Dicyclomine [Bentyl] 20 mg PO TID PRN #14 tablet PRN Reason: abdominal pain Ondansetron [Zofran ODT] 4 mg PO Q8HR PRN #15 tab PRN Reason: Nausea Is patient prescribed a controlled substance at d/c from ED?: No Referrals: Romulo Martin MD [Primary Care Provider] - 1-2 days Time of Disposition: 20:35
--- NOTE | 2021-08-18 19:07 | US ---
EXAMINATION TYPE: US gallbladder DATE OF EXAM: 08/18/2021 COMPARISON: 05/30/2017 CLINICAL HISTORY: pain. EXAM MEASUREMENTS: Liver Length: 13.4 cm Gallbladder Wall: 0.2 cm CBD: 0.3 cm Right Kidney: 12.0 x 3.5 x 5.2 cm Pancreas: Obscured by bowel gas Liver: wnl Gallbladder: wnl Evidence for sonographic Arango's sign: no CBD: wnl Right Kidney: wnl IMPRESSION: No evidence for acute right upper quadrant process. Hepatic cyst measuring up to 1.4 cm is suboptimally visualized.
--- NOTE | 2021-08-18 20:15 | CT ---
EXAMINATION TYPE: CT abdomen pelvis wo con CT DLP: 1029.4 mGycm, Automated exposure control for dose reduction was used. DATE OF EXAM: 08/18/2021 7:40 PM COMPARISON: Ultrasound same day CLINICAL INDICATION:Female, 26 years old with history of pain;, abdominal pain and cramping TECHNIQUE: Standard CT of the abdomen and pelvis without IV or oral contrast. Lack of IV or oral co ntrast limits evaluation of solid and hollow organ viscera. Coronal and sagittal reformats were perfo rmed. FINDINGS: LOWER CHEST: Unremarkable ABDOMEN LIVER: Unremarkable GALLBLADDER AND BILE DUCTS: Unremarkable. PANCREAS: Unremarkable. SPLEEN: Unremarkable. ADRENAL GLANDS: Unremarkable. KIDNEYS AND URETERS: No evidence of hydronephrosis or renal calculus. The ureters are unremarkable. PELVIS BLADDER: Unremarkable REPRODUCTIVE: IUD present and appears in appropriate position. ABDOMEN & PELVIS STOMACH AND BOWEL: Stomach and duodenum are unremarkable. Few small bowel bowel loops within the lowe r abdomen demonstrate wall thickening measuring up to 5 mm these loops of bowel demonstrate vasa rect a engorgement. Scattered diverticula are noted throughout the colon. No evidence of bowel obstruction . Appendix is visualized and felt to be within normal limits. PERITONEUM: Trace fluid is seen within the pelvis, no evidence of pneumoperitoneum. VASCULATURE: No evidence of aortic aneurysm. MUSCULOSKELETAL: No acute osseous abnormalities LYMPH NODES: Scattered prominent mesenteric lymph nodes are seen throughout the abdomen. SOFT TISSUE/ABDOMINAL WALL: Unremarkable IMPRESSION: 1. Sonographic Carolyn mesentery with enlarged mesenteric lymph nodes and engorgement of the mesenteric vasculature suggesting mesenteric panniculitis or adenitis. Given this small bowel wall thickening i n this area this could be secondary to enteritis. Evaluation is slightly limited given lack of IV con trast. Attention on follow-up imaging in 1-2 months is recommended. 2. IUD is present within the uterus.
[2021-08-18 22:53] VITALS: BP 130/80; PULSE 90; TEMP 97.8
== END 2021-08-18 21:00 | disposition home or self-care (01) ==
LOC: EC 13:07
DX: K76.89 Other specified diseases of liver (principal); R59.1 Generalized enlarged lymph nodes; J45.909 Unspecified asthma, uncomplicated; Z88.1 Allergy status to other antibiotic agents; F17.200 Nicotine dependence, unspecified, uncomplicated; F12.90 Cannabis use, unspecified, uncomplicated
CPT/HCPCS: 99284; 96372; 36415; 80053; 82150; 83690; 85025; 81003; 81025; 76705; 74176; J1170

== ENCOUNTER 2024-03-10 18:20 | Emergency (ER) | payer OTHER ==
[2024-03-10 18:33] VITALS: RESP 18
--- NOTE | 2024-03-10 18:34 | ED ---
General Adult HPI - General Source: patient, RN notes reviewed Mode of arrival: wheelchair Limitations: no limitations <Sangeeta Monson - Last Filed: 03/10/24 18:32> - General Source: RN notes reviewed, old records reviewed Mode of arrival: wheelchair Limitations: no limitations - History of Present Illness -: hour(s) Location: left, lower extremity Severity scale (1-10): 7 Quality: sharp Consistency: constant Improves with: none Associated Symptoms: denies other symptoms Treatments Prior to Arrival: none <Jh Mcknight - Last Filed: 03/23/24 01:31> - General Chief complaint: Extremity Injury, Lower Stated complaint: ankle injury Time Seen by Provider: 03/10/24 18:32 - History of Present Illness Initial comments: Quick note: 29-year-old female presents to the emergency department for evaluation of left ankle injury. Patient states that she was walking when she stepped in a hole injuring her left ankle. She states that since then she has been unable to walk, due to the pain. (Sangeeta Monson) This is a 29-year-old female with left ankle pain and left ankle injury difficulty ambulating after stepping in a hole wall walking to her car. Patient 's pain is severe and swelling and significant (Jh Mcknight) - Related Data Previous Rx's Medication Instructions Recorded Dicyclomine [Bentyl] 20 mg PO TID PRN #14 tablet 08/18/21 Ondansetron [Zofran ODT] 4 mg PO Q8HR PRN #15 tab 08/18/21 Allergies Allergy/AdvReac Type Severity Reaction Status Date / Time ceftriaxone [From Rocephin] Allergy Vomiting Verified 03/10/24 18:32 clarithromycin [From Biaxin] Allergy Rash/Hives Verified 03/10/24 18:32 Review of Systems ROS Other: All systems not noted in ROS Statement are negative. <Sangeeta Monson - Last Filed: 03/10/24 18:32> ROS Other: All systems not noted in ROS Statement are negative. <Jh Mcknight - Last Filed: 03/23/24 01:31> ROS Statement: Those systems with pertinent positive or pertinent negative responses have been documented in the HPI. Past Medical History Past Medical History: Asthma History of Any Multi-Drug Resistant Organisms: None Reported Past Surgical History: Section, Tonsillectomy Past Anesthesia/Blood Transfusion Reactions: No Reported Reaction Past Psychological History: No Psychological Hx Reported Smoking Status: Current every day smoker Past Alcohol Use History: Rare Past Drug Use History: Marijuana - Past Family History Father Family Medical History: Cancer, Diabetes Mellitus, Hypertension <Sangeeta Monson - Last Filed: 03/10/24 18:32> General Exam <Sangeeta Monson - Last Filed: 03/10/24 18:32> General appearance: alert, in no apparent distress Head exam: Present: atraumatic, normocephalic, normal inspection Eye exam: Present: normal appearance, PERRL, EOMI. Absent: scleral icterus, conjunctival injection, periorbital swelling ENT exam: Present: normal exam, mucous membranes moist Neck exam: Present: normal inspection. Absent: tenderness, meningismus, lymphadenopathy Respiratory exam: Present: normal lung sounds bilaterally. Absent: respiratory distress, wheezes, rales, rhonchi, stridor Cardiovascular Exam: Present: regular rate, normal rhythm, normal heart sounds. Absent: systolic murmur, diastolic murmur, rubs, gallop, clicks GI/Abdominal exam: Present: soft, normal bowel sounds. Absent: distended, tenderness, guarding, rebound, rigid Extremities exam: Present: normal inspection, full ROM, normal capillary refill. Absent: tenderness, pedal edema, joint swelling, calf tenderness Back exam: Present: normal inspection Neurological exam: Present: alert, oriented X3, CN II-XII intact Psychiatric exam: Present: normal affect, normal mood Skin exam: Present: warm, dry, intact, normal color. Absent: rash <Jh Mcknight - Last Filed: 03/23/24 01:31> - General Exam Comments Initial Comments: Visual Physical Exam Vital signs reviewed General: Well-appearing, nontoxic, no acute distress. Head: Normocephalic, atraumatic Eyes: PERRLA, EOMI ENT: Airway patent Chest: Nonlabored breathing Skin: No visual rash, normal skin tone Neuro: Alert and oriented 3 Musculoskeletal: No gross abnormalities (Sangeeta Monson) Course <Jh Mcknight - Last Filed: 03/23/24 01:31> Vital Signs 03/10/24 03/10/24 03/10/24 18:30 21:02 21:58 Temperature 97.8 F 97.9 F Pulse Rate 91 76 72 Respiratory 18 18 18 Rate Blood Pressure 153/84 144/75 145/76 O2 Sat by Pulse 98 95 96 Oximetry - Reevaluation(s) Reevaluation #1: Medical records reviewed (Jh Mcknight) Reevaluation #2: Patient symptoms improved (Jh Mcknight) Reevaluation #3: Patient informed of results and questions answered (Jh Mcknight) Reevaluation #4: Was pt. sent in by a medical professional or institution (, SOPHIE, POLISHING MACHINE OPERATOR, urgent care, hospital, or assisted...) When possible be specific @ -no Did you speak to anyone other than the patient for history (EMS, parent, family, police, friend...)? What history was obtained from this source @ -no Did you review nursing and triage notes (agree or disagree)? Why? @ -agree Are old charts reviewed (outside hosp., previous admission, EMS record, old EKG, old radiological studies, urgent care reports/EKG's, assisted records)? Report findings @ -yes Differential Diagnosis (chest pain, altered mental status, abdominal pain women, abdominal pain men, vaginal bleeding, weakness, fever, dyspnea, syncope, headache, dizziness, GI bleed, back pain, seizure, CVA, palpatations, mental health, musculoskeletal)? @ -prior EKG interpreted by me (3pts min.). @ -no X-rays interpreted by me (1pt min.). @ -yes negative for acute disease CT interpreted by me (1pt min.). @ -no U/S interpreted by me (1pt. min.). @ -no What testing was considered but not performed or refused? (CT, X-rays, U/S, labs)? Why? @ -none What meds were considered but not given or refused? Why? @ -none Did you discuss the management of the patient with other professionals (professionals i.e. SOPHIE Baird, POLISHING MACHINE OPERATOR, lab, RT, psych nurse, social work assistant, shopper, teacher, project control officer, registered nurse hh case manager)? Give summary @ -no Was smoking cessation discussed for >3mins.? @ -no Was critical care preformed (if so, how long)? @ -no Were there social determinants of health that impacted care today? How? (Homelessness, low income, unemployed, alcoholism, drug addiction, transportation, low edu. Level, literacy, decrease access to med. care, intermediate, rehab)? @ -none Was there de-escalation of care discussed even if they declined (Discuss DNR or withdrawal of care, Hospice)? DNR status @ -no What co-morbidities impacted this encounter? (DM, HTN, Smoking, COPD, CAD, Cancer, CVA, ARF, Chemo, Hep., AIDS, mental health diagnosis, sleep apnea, morbid obesity)? @ -none Was patient admitted / discharged? Hospital course, mention meds given and route, prescriptions, significant lab abnormalities, going to OR and other pertinent info. @ - 29 female to the ER for evaluation today. Patient has left ankle sprain no acute other fracture noted patient can be discharged home Discharge Undiagnosed new problem with uncertain prognosis? @ -no Drug Therapy requiring intensive monitoring for toxicity (Heparin, Nitro, Insulin, Cardizem)? @ -no Were any procedures done? @ -no Diagnosis/symptom? @ -Left significant ankle sprain Acute, or Chronic, or Acute on Chronic? @ -Acute Uncomplicated (without systemic symptoms) or Complicated (systemic symptoms)? @ -Complicated Side effects of treatment? @ -no Exacerbation, Progression, or Severe Exacerbation? @ -exacerbation Poses a threat to life or bodily function? How? (Chest pain, [place], [place], pneumonia, PE, COPD, DKA, ARF, appy, cholecystitis, CVA, Diverticulitis, Homicidal, Suicidal, threat to staff... and all critical care pts) @ -no (Jh Mcknight) Medical Decision Making <Sangeeta Monson - Last Filed: 03/10/24 18:32> - Radiology Data Radiology results: report reviewed (X-ray tib-fib and ankle are negative for traumatic injury), image reviewed <Jh Mcknight - Last Filed: 03/23/24 01:31> - Medical Decision Making Quick note preformed and electronically signed by Sangeeta Monson PA-C (Sangeeta Monson) 29 female to the ER for evaluation today. Patient has left ankle sprain no acute other fracture noted patient can be discharged home (Jh Mcknight) Disposition <Sangeeta Monson - Last Filed: 03/10/24 18:32> Is patient prescribed a controlled substance at d/c from ED?: No Time of Disposition: 20:10 <Jh Mcknight - Last Filed: 03/23/24 01:31> Clinical Impression: Left leg pain, Left ankle sprain Disposition: HOME SELF-CARE Condition: Good Instructions (If sedation given, give patient instructions): Ankle Sprain (ED), Knee Sprain (ED) Referrals: Corby Booker, [Doctor of Osteopathic Medicine] - 1-2 days None,Stated [Primary Care Provider] - 1-2 days
--- NOTE | 2024-03-10 19:25 | XR ---
EXAMINATION TYPE: XR ankle complete LT DATE OF EXAM: 03/10/2024 COMPARISON: None HISTORY: Twisted injury, pain TECHNIQUE: 3 view left ankle FINDINGS: Ankle mortise is intact. No acute fracture or dislocation is evident. Soft tissues are norm al. Achilles tendon calcaneal heel spur is present. Follow up exams can be performed 7-10 days from acute trauma for continued pain. IMPRESSION: 1. No acute osseous abnormality left ankle.
--- NOTE | 2024-03-10 19:27 | XR ---
EXAMINATION TYPE: XR tibia fibula LT DATE OF EXAM: 03/10/2024 COMPARISON: None HISTORY: Fall twisting injury TECHNIQUE: 2 view left tibia and fibula FINDINGS: No acute fractures or dislocations evident. Joint spaces appear preserved. There may be a s pur from the proximal posterior medial fibular metaphysis. Calcifications are within the subcutaneous tissues anterior proximal tibia. Follow up exams can be performed 710 days from acute trauma for continued pain. IMPRESSION: 1. No acute osseous abnormality left tibia and fibula
[2024-03-10] MEDS: HYDROmorphone 1 MG/ML 1 ML SYRINGE IM STA (20:39)
[2024-03-10] MEDS: IBUPROFEN 800 MG TAB PO STA (20:41)
[2024-03-10] MEDS: ACETAMINOPHEN TAB 500 MG TAB PO STA (20:41)
[2024-03-10] MEDS: IBUPROFEN 600 MG STARTER PACK 4 TAB BTL PO STA (20:42)
[2024-03-10] MEDS: traMADol 50 MG STARTER PACK 3 TAB BTL PO STA (20:42)
[2024-03-10 22:00] VITALS: BP 145/76; PULSE 72; TEMP 97.9
== END 2024-03-10 22:00 | disposition home or self-care (01) ==
LOC: EC 18:20
DX: S93.402A Sprain of unspecified ligament of left ankle, initial encounter (principal); F17.200 Nicotine dependence, unspecified, uncomplicated; Z88.1 Allergy status to other antibiotic agents; W18.30XA Fall on same level, unspecified, initial encounter; X50.1XXA Overexertion from prolonged static or awkward postures, initial encounter; Y93.01 Activity, walking, marching and hiking
CPT/HCPCS: 99284; 96372; 73590; 73610; J1170